=== PATIENT | female | born 2000 | race African-American/Black ===

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

== ENCOUNTER 2022-12-30 13:09 | Outpatient (CLI) | payer OTHER, SELFPAY ==
[2022-12-30 13:44] LABS: Basophils Percent Auto 0.9 % (0.2-1.2); Eosinophils Absolute Auto 0.1 K/mm3 (0-0.3); Eosinophils Percent Auto 3.1 % (0-4.4); Hematocrit 39.2 % (37.0-47.0); Lymphocytes Absolute Auto 1.56 K/mm3 (0.9-3.2); Lymphocytes Percent Auto 44.4 % (18.3-44.2); Mean Corpuscular HGB Conc 33.2 g/dl (32-36); Mean Corpuscular Hemoglobin 30.5 pg (26-34); Mean Platelet Volume 9.9 fl (7.4-10.4); Monocytes Absolute Auto 0.4 K/mm3 (0.1-0.6); Monocytes Percent Auto 10.3 % (2.6-8.5); Neutrophils Absolute Auto 1.5 K/mm3 (1.3-6.7); Neutrophils Percent Auto 41.3 % (45.5-73.1); Platelet Count Result 192 k/mm3 (150-375); Red Blood Count 4.26 M/mm3 (4.2-5.4); Red Cell Distribution Width 12.9 % (11.5-14.5); White Blood Count 3.5 K/mm3 (4.5-10.0)
[2022-12-30 14:04] LABS: Alanine Aminotransferase 17 U/L (6-35); Alkaline Phosphatase 46 U/L (38-126); Anion Gap 5 mmol/L (8-16); Aspartate Amino Transferase 24 U/L (14-36); Bilirubin,Total 0.5 mg/dL (0.2-1.3); Blood Urea Nitrogen 11 mg/dL (7-17); Calcium 8.6 mg/dL (8.4-10.2); Carbon Dioxide 27 mmol/L (22-30); Chloride 104 mmol/L (98-107); Estimated Glomerular Filt Rate > 60; Glucose 85 mg/dL (65-110); Potassium 3.8 mmol/L (3.4-5.0); Sodium 136 mmol/L (137-145)
[2022-12-30 14:08] LABS: Complement C3 92 mg/dL (88-165)
[2022-12-30 14:24] LABS: Vitamin D 25 Hydroxy 63.7 ng/mL
[2022-12-30 14:38] LABS: Hepatitis B Surface Antigen Negative (Negative)
[2022-12-30 14:42] LABS: HIV 1/2 Ab P24 Ag Result Negative (Negative)
[2022-12-30 14:55] LABS: Hepatitis C Virus Antibody Negative (Negative)
[2023-01-02 08:05] LABS: Rapid Plasma Reagin Non-Reactive (NonReactive)
== END 2022-12-30 13:10 | disposition home or self-care (01) ==
LOC: ANHLAB 13:12
PROVIDERS: PCP Nurse Practitioner Family; Referring Provider Internal Medicine; Visit Provider Obstetrics & Gynecology
DX: E55.9 Vitamin D deficiency, unspecified (principal); R76.8 Other specified abnormal immunological findings in serum; M19.90 Unspecified osteoarthritis, unspecified site; Z20.2 Contact with and (suspected) exposure to infections with a predominantly sexual mode of transmission
CPT/HCPCS: 36415; 80053; 82306; 85025; 86160; 86592; 86703; 86803; 87340; G0432